=== PATIENT | female | born 1955 | race Caucasian/White ===

== ENCOUNTER 2017-02-10 08:29 | Emergency (ER) | payer BC ==
[2017-02-10 08:53] VITALS: BP 142/72
--- NOTE | 2017-02-10 10:01 | UC ---
Bite Injury/Animal HPI - HPI Summary HPI Summary: complaint of tick bite found it on the right side of trunk unsure how long it has been attached but most liekly less then 24 hours put some hydrogen peroxide ion it small red rash around bite - History of Current Complaint Chief Complaint: [facility] Stated Complaint: TICK BITE Time Seen by Provider: 02/10/17 09:56 Hx Obtained From: Patient - Allergies/Home Medications Allergies/Adverse Reactions: Allergies Allergy/AdvReac Type Severity Reaction Status Date / Time Penicillins Allergy Severe Rash Verified 09/10/16 16:48 Home Medications: Home Medications Aspirin [Aspirin 81 MG TAB] 81 mg PO DAILY 02/10/17 [History Confirmed 02/10/17] PMH/Surg Hx/FS Hx/Imm Hx Previously Healthy: Yes Endocrine History Of: Denies: Diabetes, Thyroid Disease Cardiovascular History Of: Denies: Cardiac Disorders, Hypertension Respiratory History Of: Denies: COPD, Asthma GI/ History Of: Denies: Ulcer Cancer History Of: Denies: Breast Cancer Other History Of: Negative For: Anticoagulant Therapy - Surgical History Surgical History: Yes Surgery Procedure, Year, and Place: wisdom teeth - Family History Known Family History: Positive: None - Social History Occupation: Employed Full-time Lives: With Family Alcohol Use: Occasionally Substance Use Type: None Smoking Status (MU): Never Smoked Tobacco Review of Systems Constitutional: Negative Skin: Rash Eyes: Negative ENT: Negative Respiratory: Negative Cardiovascular: Negative Gastrointestinal: Negative Genitourinary: Negative Motor: Negative Neurovascular: Negative Musculoskeletal: Negative Neurological: Negative Psychological: Negative All Other Systems Reviewed And Are Negative: Yes Physical Exam Triage Information Reviewed: Yes Appearance: No Pain Distress, Well-Nourished Vital Signs: Initial Vital Signs Temp 97.6 F 02/10/17 08:49 Pulse 76 02/10/17 08:49 Resp 16 02/10/17 08:49 BP 142/72 02/10/17 08:49 Pulse Ox 100 02/10/17 08:49 Vital Signs Reviewed: Yes Eyes: Positive: Conjunctiva Clear ENT: Positive: Pharynx normal, TMs normal Neck: Positive: No Lymphadenopathy Respiratory: Positive: Lungs clear, Normal breath sounds, No respiratory distress Cardiovascular: Positive: RRR, No Murmur, Pulses Normal Musculoskeletal Exam: Normal Neurological: Positive: Alert Psychological Exam: Normal Skin: Positive: Other - tick bite small 3mm area of erythema Bite Injury Course/Dx - Course Course Of Treatment: exam complete will treat with prophylactic dose of doxycycline - Differential Dx/Diagnosis Provider Diagnoses: tick bite Discharge - Discharge Plan Condition: Stable Disposition: HOME Prescriptions: DOXYcycline CAP(*) [DOXYcycline 100MG CAP(*)] 100 mg PO DAILY #2 cap Patient Education Materials: Tick Bite (ED) Referrals: Rocio Greco NP [Primary Care Provider] - Additional Instructions: Please start antibiotic as directed Increase fluids and rest Take acetaminophen or ibuprofen for fever or pain Please review your discharge instructions. If your symptoms do not improve please call your primary care provider or return to urgent care.
== END 2017-02-10 10:14 | disposition home or self-care (01) ==
LOC: UCEAST 08:29
DX: S40.861A Insect bite (nonvenomous) of right upper arm, initial encounter (principal); R21 Rash and other nonspecific skin eruption; W57.XXXA Bitten or stung by nonvenomous insect and other nonvenomous arthropods, initial encounter; Y93.9 Activity, unspecified; Y92.9 Unspecified place or not applicable; Z88.0 Allergy status to penicillin
CPT/HCPCS: 99211; G0463

== ENCOUNTER 2019-09-03 08:10 | Emergency (ER) | payer MEDICARE ==
[2019-09-03 08:22] VITALS: BP 170/76
--- NOTE | 2019-09-03 08:56 | UC ---
UC General HPI - HPI Summary HPI Summary: 64-year-old female comes in with a chief complaint of left-sided facial pain and numbness and weakness. About 3 days ago started with some pain in the left side of the face at the level of her upper molars. The discomfort spread into her left ear and down the left side of her posterior neck. She feels like she has swollen lymph nodes just inferior to the left ear. No fevers or chills no rash. Today after she woke up she felt like she had a left facial droop and that it was difficult closing her left eyelid. No change in vision or speech no difficulty or neurologic symptoms in the arms or legs no problems with balance. - History of Current Complaint Chief Complaint: UCGeneralIllness Stated Complaint: EYE COMPLAINT Time Seen by Provider: 09/03/19 08:17 Pain Intensity: 2 - Allergy/Home Medications Allergies/Adverse Reactions: Allergies Allergy/AdvReac Type Severity Reaction Status Date / Time Penicillins Allergy Severe Rash Verified 09/03/19 08:22 sugar Allergy Itching Uncoded 09/03/19 08:22 Home Medications: Home Medications Multivitamin [Multivitamins] 1 tab PO DAILY 09/03/19 [History Confirmed 09/03/19 ] PMH/Surg Hx/FS Hx/Imm Hx Previously Healthy: Yes Endocrine History: Dyslipidemia Other History Of: Negative For: Anticoagulant Therapy - Surgical History Surgical History: Yes Surgery Procedure, Year, and Place: wisdom teeth. needle removed from foot - Family History Known Family History: Positive: None - Social History Alcohol Use: Occasionally Substance Use Type: None Smoking Status (MU): Never Smoked Tobacco Review of Systems All Other Systems Reviewed And Are Negative: Yes Constitutional: Positive: Negative Skin: Positive: Negative Eyes: Positive: Other - see hpi ENT: Positive: Other - see hpi Respiratory: Positive: Negative Cardiovascular: Positive: Negative Gastrointestinal: Positive: Negative Motor: Positive: Other - see hpi Neurovascular: Positive: Other - see hpi Musculoskeletal: Positive: Other: - see hpi Neurological: Positive: Other - see hpi Psychological: Positive: Negative Is Patient Immunocompromised?: No Physical Exam Triage Information Reviewed: Yes Appearance: Well-Appearing, No Pain Distress, Well-Nourished Vital Signs: Initial Vital Signs Temp 97.4 F 09/03/19 08:12 Pulse 68 09/03/19 08:12 Resp 18 09/03/19 08:12 BP 170/76 12/19/19 08:12 Pulse Ox 97 09/03/19 08:12 Vital Signs Reviewed: Yes Eyes: Positive: Other: - Left eyelid lags when compared to the right eyelid. Patient is able to close the left eyelid completely. Normal conjunctiva. PERRLA EOMI. No photophobia. ENT: Positive: Pharynx normal, TMs normal Neck: Positive: Supple Respiratory: Positive: Lungs clear, Normal breath sounds, No respiratory distress Cardiovascular: Positive: RRR Musculoskeletal: Positive: No Edema Neurological: Positive: Alert, Other: - Patient has a left-sided facial droop. This includes the forehead and the left eyelid. Patient reports decreased sensation on the forehead and face on the left side compared to the right. When the patient raises her eyebrows the left side is weaker and does not go up as high as the right side. Her left eyelid also is slow to respond. She is able to close her left eyelid completely. No decreased strength or drift or decreased sensation in the arms and legs. No visual field deficit. 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 And treating with valacyclovir 1 g by mouth 3 times a day for 7 days and also prednisone 60 mg a day for 7 days. CRP CBC and Lyme screen are pending. If the patient's Lyme is positive she'll need to be treated for Lyme. Plan is to follow-up with her primary care physician. Follow-up with neurology if not completely improved. We discussed that if there was any other neurologic deficit with difficulty with vision or speech balance or weakness or numbness she needs to go directly to the emergency department. We also discussed eye care. Recommended artificial tears at this time as the patient is able to close her eyelid completely. Follow-up with ophthalmology if any difficulties with the eye. - Diagnoses Provider Diagnosis: Left-sided Valdes's palsy Discharge ED - Sign-Out/Discharge Documenting (check all that apply): Patient Departure All imaging exams completed and their final reports reviewed: No Studies - Discharge Plan Condition: Stable Disposition: HOME Prescriptions: predniSONE TAB* [Deltasone 20 MG TAB*] 60 mg PO DAILY #21 tab ValACYclovir (*) [Valtrex 1 GM(*)] 1 gm PO TID #21 tab Patient Education Materials: Valdes Palsy (ED) Referrals: Meghan Posadas NP [Primary Care Provider] - Emmtet Rodriguez MD [Medical Doctor] - [facility] [Provider Group] Additional Instructions: FOLLOW UP WITH YOUR PRIMARY CARE DOCTOR OR NEUROLOGY, DR RODRIGUEZ. USE ARTIFICIAL TEARS TO HELP KEEP YOUR EYE MOIST. YOU CAN WEAR AN EYE PATCH AT NIGHT IF NEEDED. FOLLOW UP WITH OPHTHALMOLOGY IF YOUR EYE IS WORSE. GO TO THE EMERGENCY DEPARTMENT IF WORSE; DIFFICULTY WITH VISION, SPEECH OR BALANCE, WEAKNESS, NUMBNESS, SIGNS OF A STROKE OR INFECTION OR ANY QUESTIONS OR CONCERNS. - Billing Disposition and Condition Condition: STABLE Disposition: Home
[2019-09-03 13:03] LABS: ABS Eosinophils 0.1 10^3/ul (0-0.6); ABS Lymphocytes 1.5 10^3/ul (1.0-4.8); ABS Monocytes 0.7 10^3/ul (0-0.8); ABS Neutrophils 3.4 10^3/ul (1.5-7.7); Eosinophil % 1.6 %; Hematocrit 45 % (35-47); Hemoglobin 15.3 g/dL (12.0-16.0); Lymphocyte % 26.3 %; Mean Corpuscular HGB Conc 34 g/dL (31-36); Mean Corpuscular Hemoglobin 31 pg (27-31); Mean Corpuscular Volume 92 fL (80-97); Mean Platelet Volume 9.7 fL (7.4-10.4); Nucleated Red Blood Cells % 0.1; Platelet Count 248 10^3/uL (150-450); Red Cell Distribution Width 13 % (10-15); White Blood Count 5.7 10^3/uL (3.5-10.8)
== END 2019-09-03 09:16 | disposition home or self-care (01) ==
LOC: UCEAST 08:10
DX: G51.0 Bell's palsy (principal); Z88.0 Allergy status to penicillin; Z91.018 Allergy to other foods
CPT/HCPCS: 36415; 85025; 86140; 86618; 99212; G0463